=== PATIENT | male | born 1965 | race Caucasian/White ===

== ENCOUNTER 2025-01-23 13:42 | Emergency (ER) | payer OTHER, SELFPAY ==
[2025-01-23 13:46] VITALS: BP 118/87
[2025-01-23 14:35] VITALS: BP 115/79
--- NOTE | 2025-01-23 14:39 | ED.GENMED ---
History of Present Illness
General
Chief Complaint: Heart Rate Problem
Source: patient
Exam Limitations: none
Time Seen by Provider: 01/23/25 13:56
Nursing documentation reviewed up to this point in time: agreed with
History of Present Illness
History of Present Illness:
pt is a 59 y/o M
no medical problems
says he used kratom today arbout 1.5 hours ago, bought at a pharmacy, used heaping tablespoon and ate tomato sandwich and within 10 minutes felt lightheaded,tingly in his head and felt his heart beating stronger than usual, and 'off'
he says he tried to force himself to vomit but was unable to
no cp, sob, ysncope
he came here and while being here started feeling better and now he feels himself
he wants to go home, zaragoza snot wish to have any testing
no cad history
uses marijuana but not today
no alcohol dependence
Past History
Past History
ED Past Medical History: None
ED Past Surgical History: Orthopedic
Social History
Tobacco: Non-smoker
Alcohol: Occasional
Drug: Marijuana
Personal: Single
Living: alone
Employment: Employed
Review of Systems
Review of Systems
Allergies reviewed?: Yes
All Other Systems: Not applicable
Phy Exam
Physical Exam
Physical Exam:
GENERAL: Alert , in no apparent distress, looks calm
EYE: pupils equal and reactive, equal and reactive at 3 mm
NECK: Supple
ENT: o/p clr, mmm.
CARDIAC: Regular rate and rhythm . No murmur
LUNGS: Clear breath sounds bilaterally, no acute respiratory distress, no wheezes/rales/rhonchi
ABDOMEN: Soft, without focal tenderness, no r/g, no cvat, normal bowel sounds
NEUROLOGICAL: Alert and oriented, no focal neuro deficits
SKIN: Warm and dry, skin intact.
MUSCULOSKELETAL: No edema, well perfused. neg meño's sign
PSYCH: Normal and appropriate interaction.
Course
Orders/Labs/Results
Orders:
Orders
01/23/25 13:45
EKG [Electrocardiogram (*1)] Urgent
Reason for Study: Tachycardia
01/23/25 13:46
EKG- Treatment ONCE
Vital Signs
Initial and Last Documented VS:
Initial Vital Signs
Temp Pulse Resp BP Pulse Ox
36.9 C 82 19 118/87 100
01/23/25 13:46 01/23/25 13:46 01/23/25 13:46 01/23/25 13:46 01/23/25 13:46
Last Documented Vital Signs
Temp Pulse Resp BP Pulse Ox
36.9 C 69 18 115/79 99
01/23/25 13:46 01/23/25 14:35 01/23/25 14:35 01/23/25 14:35 01/23/25 14:35
MDM/Problems Addressed
Differential Diagnosis Includes:
adverse reaction, paptiations, anxiety, stimulant use
MDM/Problems Addressed:
59-year-old healthy male says he bought kratom [id number] and used a heaping tablespoon in about 10 minutes later he felt tingly and had the feeling that his heart was strong but not fast or irregular, he felt a little lightheaded and weird.
Spent about 2 hours and he now feels nearly back to baseline. Patient had stable vitals and a normal EKG nonischemic no ST elevation or depression, no ectopy. He was offered screening labs to look at electrolytes and liver functions but he
declined. He would like to go home.
*Critical Care Note
Total Time (30-74mins, 75-104mins- exclusive of procedures): Not Applicable
ED Attending Note
-
Portions of this chart may have been created with voice recognition software.� Occasional wrong word or��sound alike� substitutions may have occurred due to the inherent limitations of voice recognition software.
Discharge Plan
Departure
Patient Disposition: Home (Routine Discharge)
Date of Disposition: 01/23/25
Time of Disposition: 14:35
Patient with high blood pressure during this ER visit?: No
Condition: Fair
Covid-19: Not Applicable
Discharge Problem:
Adverse effect of drug
Instructions: Palpitations (DC)
Activity Restrictions/Additional Instructions:
YOUR SYMPTOMS SEEM TO BE DUE TO ADVERSE SIDE EFFECT OF THE KRATOM.
YOUR SYMPTOMS WERE ALREADY IMPROVING.
YOU WERE OFFERED SCREENING BLOOD WORK BUT DECLINED
AVOID ANY STIMULANTS TODAY
RETURN FOR ANY CONCERNS.
Interventions
Interventions:
*Risk Screen - Suicide Last Done: 01/23/25 13:46
*General Assessment Last Done: 01/23/25 13:46
*Neglect/Abuse Screening Last Done: 01/23/25 13:46
ED- Cardiac Assessment Last Done: 01/23/25 14:36
ED- Pulmonary Assessment Last Done: 01/23/25 14:36
Discharge Date and Time
Print Language: YI
== END 2025-01-23 15:21 | disposition home or self-care (01) ==
LOC: EMR 13:42
PROVIDERS: EMERGENCY PHYSICIAN Emergency Medicine; FAMILY PHYSICIAN Family Medicine
DX: R42 Dizziness and giddiness (principal); R20.2 Paresthesia of skin; T50.905A Adverse effect of unspecified drugs, medicaments and biological substances, initial encounter; F12.90 Cannabis use, unspecified, uncomplicated
CPT/HCPCS: 99283; 93005